=== PATIENT | male | born 1990 | race Caucasian/White ===

== ENCOUNTER 2016-06-23 16:16 | Emergency (ER) | payer OTHER ==
[~2016-06-23] VITALS: Ht 185.4 cm; Wt 101.8 kg
[~2016-06-23 16:16] MED LIST: LMX 430 GM TP; ZUBSOLV 5.7-1.1 EACH SL
[2016-06-23] MEDS ORDERED: MOTRIN800 MG PO (17:58)
[2016-06-23 18:18] VITALS: BP 158/85
== END 2016-06-23 18:19 | disposition home or self-care (01) ==
LOC: EME 16:16
DX: S43.402A Unspecified sprain of left shoulder joint, initial encounter (principal); W18.09XA Striking against other object with subsequent fall, initial encounter; Y93.02 Activity, running
CPT/HCPCS: 73030; 99281; 99283

== ENCOUNTER → 2016-08-20 | Emergency (ER) | payer OTHER ==
[~2016-08-20] VITALS: Ht 185.4 cm; Wt 106.0 kg
[~2016-08-20] MED LIST changes: +MOTRIN800 MG PO; +TRAZODONE HCL50 MG PO
[2016-08-20 14:41] VITALS: BP 135/99
== END | disposition home or self-care (01) ==
LOC: EME 13:25
DX: S61.211A Laceration without foreign body of left index finger without damage to nail, initial encounter (principal); W45.8XXA Other foreign body or object entering through skin, initial encounter; Z23 Encounter for immunization
CPT/HCPCS: 99281; 99283